=== PATIENT | female | born 1995 | race Caucasian/White ===

== ENCOUNTER → 2023-11-09 13:56 | Outpatient (CLI) | payer OTHER, SELFPAY ==
[2023-11-11 17:22] LABS: QuantiFERON Mitogen Value >10.00 IU/mL (.); QuantiFERON Nil Value 0.01 IU/mL (.); QuantiFERON TB Gold Plus Negative (Negative)
== END ==
PROVIDERS: Visit Provider Family Medicine
DX: Z11.1 Encounter for screening for respiratory tuberculosis (principal)
CPT/HCPCS: 86480